=== PATIENT | female | born 2000 | race Native Hawaiian/Other Pacific Islander ===

== ENCOUNTER 2019-07-07 20:18 | Emergency (ER) | payer OTHER ==
[~2019-07-07] VITALS: Ht 154.9 cm; Wt 90.3 kg
[2019-07-07 20:25] VITALS: BP 119/71; TEMP 97.5
[2019-07-07 20:55] LABS: PLATELET COUNT 226 K/uL (152-353)
[2019-07-07 20:59] LABS: POTASSIUM 3.9 mmol/L (3.6-5.2); SODIUM 139 mmol/L (136-145)
== END 2019-07-07 21:09 | disposition home or self-care (01) ==
LOC: ED 20:18
PROVIDERS: Emergency Medicine
DX: N93.8 Other specified abnormal uterine and vaginal bleeding (principal); W22.8XXA Striking against or struck by other objects, initial encounter; Y92.89 Other specified places as the place of occurrence of the external cause
CPT/HCPCS: 80053; 81000; 84702; 85027; 99284

== ENCOUNTER 2019-07-28 02:52 | Emergency (ER) | payer OTHER ==
[~2019-07-28] VITALS: Ht 154.9 cm; Wt 90.3 kg
[2019-07-28 04:57] VITALS: BP 126/84; TEMP 100
== END 2019-07-28 04:58 | disposition home or self-care (01) ==
LOC: ED 02:52
DX: T76.21XA Adult sexual abuse, suspected, initial encounter (principal); F19.90 Other psychoactive substance use, unspecified, uncomplicated
CPT/HCPCS: 80307; 81000; 81025; 99283

== ENCOUNTER 2021-11-04 00:43 | Emergency (ER) | payer OTHER ==
[~2021-11-04] VITALS: Ht 154.9 cm; Wt 102.1 kg
[2021-11-04 03:50] VITALS: BP 130/86; TEMP 97.7
== END 2021-11-04 03:50 | disposition home or self-care (01) ==
LOC: ED 00:43
PROC: 2W3LX1Z Immobilization of Right Lower Extremity using Splint (ICD-10-PCS; principal; 2021-11-04)
DX: S83.8X1A Sprain of other specified parts of right knee, initial encounter (principal); V86.55XA Driver of 3- or 4- wheeled all-terrain vehicle (ATV) injured in nontraffic accident, initial encounter; Y92.89 Other specified places as the place of occurrence of the external cause
CPT/HCPCS: 81000; 81025; 87077; 87086; 87088; 87186; 96374; 96375; 99284; J1885; J2270; J2405